=== PATIENT | male | born 1985 | race Two or more races ===

== ENCOUNTER 2023-03-06 17:34 | Emergency (ER) | payer BC, SELFPAY ==
--- NOTE | ~2023-03-06 | US_ITS ---
EXAMINATION: US SCROTUM CLINICAL INFORMATION: Scrotal swelling and pain.. COMPARISON: None available. TECHNIQUE: A sonogram of the scrotum was performed assessing gillespie-scale appearance and color Doppler flow. Spectral Doppler analysis of the arterial and venous flow were performed in the testes bilaterally. FINDINGS: RIGHT: Right testicle measures 4.1 x 1.8 x 2.4 cm, volume 9.5 mL. No focal testicular parenchymal lesions are visualized. Spectral Doppler analysis of the arterial and venous flow is normal in the right testis. Right epididymal head is normal in size. There is a small hydrocele. No varicocele is seen. Right epididymal Doppler flow is normal. LEFT: Left testicle measures 3.8 x 2.0 x 2.4 cm, volume 9.6 mL. No focal testicular parenchymal lesions are visualized. Spectral Doppler analysis of the arterial and venous flow is normal in the left testis. Left epididymal head is normal in size. There is a small hydrocele. No varicocele is seen. Left epididymal Doppler flow is normal. US/US scrotum IMPRESSION: 1. There are small bilateral hydroceles. 2. No testicular mass, torsion or varicocele is seen bilaterally.
[2023-03-06 17:57] VITALS: BP 152/87; PULSE 75; RESP 14; TEMP 36.4; O2SAT 98; BMI 34.0
--- NOTE | 2023-03-06 18:04 | ED_ITS ---
HPI - Male Genitourinary General Chief complaint: Urogenital-Male Stated complaint: A lot of vesticulor pain/sent by [facility] Time Seen by Provider: 03/06/23 22:31 Source: patient Mode of arrival: ambulatory Limitations: no limitations History of Present Illness HPI Narrative: Patient comes to the emergency room complaining of 2 days of bilateral testicular pain. Patient denies any injury, patient denies dysuria. Patient states that he recently broke up with his girlfriend from 7 years, although patient does not have any penile discharge or dysuria, patient would like to be tested for STDs. Related Data Allergies Allergy/AdvReac Type Severity Reaction Status Date / Time No Known Allergies Allergy Verified 03/06/23 17:59 Review of Systems Review of Systems: Constitutional : No Weight loss, No Fever, No Chills, No Night Sweats, No Fatigue, No Malaise ENT/Mouth : No Hearing loss, No Ear Pain, No Nasal Congestion, No Sinus Pain, No Hoarseness, No sore throat, No Rhinorrhea, No Swallowing Difficulty Eyes: No Eye Pain, No Swelling, No Redness, No Foreign Body, No Discharge, No Vision Changes Cardiovascular : No Chest Pain, No SOB, No Dyspnea on Exertion, No Orthopnea, No Edema, No Palpitations Respiratory : No Cough, No Sputum, No Wheezing, No Smoke Exposure, No Dyspnea Gastrointestinal : No Nausea, No Vomiting, No Diarrhea, No Constipation, No abdominal Pain, No Hematochezia, No Melena Genitourinary : Complaining of bilateral testicular pain, No Dysuria, No Urinary Frequency, No Hematuria, No Urinary Incontinence, No Urgency, No Flank Pain, No Urinary Flow Changes, No Hesitancy Musculoskeletal : No joint pain, No Myalgias, No Joint Swelling Skin : No Skin Lesions, No rash Neuro : No Weakness, No Numbness, No Paresthesias, No Loss of Consciousness, No Dizziness, No Headache Psych : No Anxiety/Panic, No Depression, No SI/HI/AH/VH, No Social Issues, Heme/Lymph: No Bruising, No Bleeding,No Lymphadenopathy Endocrine : No Polyuria, No Polydipsia, No Temperature Intolerance PMFSH Social History Social History Advance Directives: No Advance Directives Information Provided: No Physical Exam Vital Signs: Vital Signs: Last Vital Signs Temp 97.2 F 03/06/23 22:38 Pulse 66 03/06/23 22:38 Resp 14 03/06/23 22:38 BP 149/97 H 03/06/23 22:38 Pulse Ox 98 03/06/23 22:38 O2 Del Method Room Air 03/06/23 22:38 BMI result Body Mass Index 34.0 Const: Other: Appearance: Alert. Oriented X3. No acute distress. Eyes: Pupils equal, round and reactive to light. ENT: Pharynx normal. Neck: Normal inspection. Neck supple. No lymph nodes noted. No crepitus CVS: Normal heart rate and rhythm. Pulses normal. Normal S1 and S2 Respiratory: No respiratory distress. Breath sounds normal. No Wheezing. No rales Abdomen: Soft and nontender. No rigidity. No distention. : Normal male genitalia, no testicular swelling, no pain to palpation, no discoloration of the scrotum, no penile discharge Skin: Skin warm and dry. Normal skin color. Normal skin turgor. Extremities: No lower extremity edema. No Lacerations. No Rash Neuro: Oriented X 3. No motor deficit. No sensory deficit. Moving all extremities. No slurred speech. CN 2 through 12 grossly intact Psych: calm, cooperative, normal affect Course Course Course Narrative: This is an RME: Additional HPI, ROS, PE not included below will be deferred to primary provider. This is a 37-year-old male presenting to the emergency department for evaluation bilateral testicular pain for the last 2 days. Patient denies any trauma, no urinary symptoms. Does report his partner was cheating on him. Plan: Ultrasound, CT/NG, ultrasound Medical Decision Making Medical Decision Making MDM Narrative: -I discussed the ultrasound report with patient, there are small bilateral hydroceles without varicocele. No testicular mass or torsion. -my interpretation of urinalysis: There is small amount of blood in the urine, likely secondary to trauma versus inflammation, no UTI -patient provided a sample of ?dirty urine which will be sent to the lab for testing of STDs -at this time, patient has no dysuria or penile discharge, patient would prefer not to be treated empirically for STDs. Differential Diagnosis Differential Diagnoses: The differential diagnosis associated with the presentation includes (Testicular torsion, hydrocele, varicocele, UTI, STDs) Admission/Observation Consideration of admission/observation: Escalation of care including admission/observation considered (Given the patient's initial complaint, patient was considered) Lab Data MDM Lab Attestation statement: I reviewed the patient's lab results. Labs: Lab Results 03/06/23 Range/Units 22:29 Urine Color Yellow Urine Appearance Clear Urine pH 6.0 (5.0-9.0) Ur Specific [place] 1.025 (1.005-1.025) Urine Protein Negative (Neg-Trace) mg/dL Urine Glucose (UA) Negative (Negative) mg/dL Urine Ketones Trace (Negative) mg/dL Urine Blood Trace H (Negative) Urine Nitrite Negative (Negative) Ur Leukocyte Esterase Negative (Negative) Urine RBC 3-5 H (0-2) /HPF Urine WBC 0-5 (0-5) /HPF Ur Squamous Epith Cells 0-2 (0-2) /HPF Urine Bacteria None Seen (None Seen) Hyaline Casts 0-2 (0-2) /LPF Radiology Impression Discussion of test interpretation with radiology: I have reviewed the radiologist's reading. Radiologist Impression: FINDINGS: RIGHT: Right testicle measures 4.1 x 1.8 x 2.4 cm, volume 9.5 mL. No focal testicular parenchymal lesions are visualized. Spectral Doppler analysis of the arterial and venous flow is normal in the right testis. Right epididymal head is normal in size. There is a small hydrocele. No varicocele is seen. Right epididymal Doppler flow is normal. LEFT: Left testicle measures 3.8 x 2.0 x 2.4 cm, volume 9.6 mL. No focal testicular parenchymal lesions are visualized. Spectral Doppler analysis of the arterial and venous flow is normal in the left testis. Left epididymal head is normal in size. There is a small hydrocele. No varicocele is seen. Left epididymal Doppler flow is normal. US/US scrotum IMPRESSION: 1. There are small bilateral hydroceles. 2. No testicular mass, torsion or varicocele is seen bilaterally. Discharge Plan Discharge Clinical Impression: Pain in both testicles Patient Disposition: Home, Self-Care Instructions: Scrotal Pain (ED), Testicle Pain (ED) Additional Instructions: Your urinalysis is negative for infection. However, there was a very small amount of blood in the urine, indicating inflammation. It is likely to self resolve. The results for sexually transmitted diseases will be available in the next 48 hours. If positive, he will receive a phone call and antibiotics will b e sent to your pharmacy. Please follow-up with your primary care physician tomorrow. If you have any worsening or new symptoms, please return to the emergency room or call 911
[2023-03-06 22:34] LABS: Appearance Urine Clear; Color Urine Yellow; Glucose Urine UA Negative (Negative); Leukocyte Esterase Urine Negative (Negative); Nitrite Urine Negative (Negative); Specific Gravity - Urine 1.025 (1.005-1.025); UMIC TRIGGER UACC YES; Urine Blood Trace (Negative); Urine Ketones Trace mg/dL (Negative); Urine Protein Negative (Neg-Trace)
[2023-03-06 22:38] VITALS: BP 149/97; PULSE 66; RESP 14; TEMP 36.2; O2SAT 98
[2023-03-06 22:50] LABS: Bacteria Urine None Seen (None Seen); Hyaline Casts Urine 0-2 /LPF (0-2); Squamous Epithelial Cell Urine 0-2 /HPF (0-2); WBC Urine 0-5 /HPF (0-5)
== END 2023-03-06 23:27 | disposition home or self-care (01) ==
PROVIDERS: Physician Assistant Medical; Emergency Provider Emergency Medicine
DX: N50.812 Left testicular pain (principal); N50.811 Right testicular pain
CPT/HCPCS: 76870; 81001; 99284